=== PATIENT | female | born 1985 | race Two or more races ===

== ENCOUNTER 2020-03-30 18:39 | Emergency (ER) | payer OTHER ==
[2020-03-30] MEDS ORDERED: ACETAMINOPHEN 325 MG TABLET PO ONE ×2 (18:51→22:58)
[2020-03-30] MEDS ORDERED: DIPH/PERTUSS(ACELL)/TETANUS VAC/PF 0.5 ML SYR (>=10YO) IM ONE ×2 (18:51→23:30)
--- NOTE | 2020-03-30 18:56 | ER Document Report ---
ED Medical Screen (RME) - General Chief Complaint: Animal Bite Stated Complaint: DOG BITE - ARM INJURY Time Seen by Provider: 03/30/20 18:44 Primary Care Provider: EMILIO RM PA-C [Primary Care Provider] - Follow up as needed Mode of Arrival: Medic Information source: Patient Notes: HPI; 34-year-old female presents to the emergency room via EMS with a puncture wounds to her right third and fourth digits, right forearm. As well as a laceration to her right forearm. Bleeding is controlled. States she was attempting to get her dog from attacking a neighbor that had come over to visit. Patient states she just found 2 days ago that she is by doing home test. Patient was given 50 of fentanyl in route by EMS. PE: Alert and oriented x3. Moderate distress noted. There is a 2 cm laceration as well as a puncture wound noted to the the right forearm. There are puncture wounds to the right third and fourth finger which cannot be evaluated in triage secondary to blood. Did discuss with patient that we would need to do x-rays she is aware of the risk of having x-rays and radiation to the fetus while being patient is agreeable to have the x-rays. I have greeted and performed a rapid initial assessment of this patient. A comprehensive ED assessment and evaluation of the patient, analysis of test results and completion of the medical decision making process will be conducted by additional ED providers. I have specifically instructed the patient or family members with the patient to immediately return to any nursing staff should anything change in the patient's condition or with their chief complaint. TRAVEL OUTSIDE OF THE [place] IN LAST 30 DAYS: No - Related Data Allergies/Adverse Reactions: No Known Allergies Allergy (Unverified 03/23/20 17:40) Doctor's Discharge - Discharge Referrals: EMILIO RM PA-C [Primary Care Provider] - Follow up as needed
--- NOTE | 2020-03-30 20:20 | RADIOLOGY REPORT (SQ) ---
EXAM DESCRIPTION: Right forearm [facility]: XR FOREARM 2 VIEWS Views: 2 CLINICAL HISTORY: 34 years Female; dog bite; COMPARISON: None. FINDINGS: There is interval fixation hardware along the majority of the radial shaft and along the proximal ulnar shaft. No acute fracture. No lytic bone changes or acute periosteal reaction. Diffuse subcutaneous edema is noted. No soft tissue hyperdense foreign bodies. IMPRESSION: 1. Soft tissue edema. 2. No acute bone findings. 3. Previous internal fixation of the radius and ulna.
--- NOTE | 2020-03-30 20:26 | RADIOLOGY REPORT (SQ) ---
Right hand radiographs: 03/30/2020 7:25 PM CDT TECHNIQUE: AP, lateral, oblique images of the right hand were obtained. HISTORY: 34-year-old patient with history of right hand pain, trauma. COMPARISON: None available FINDINGS: The carpal arcs appear to be intact. The soft tissues are grossly unremarkable. There are no findings to suggest an acute fracture or subluxation within the right hand. No abnormal soft tissue calcifications, significant osteophyte formation, periarticular osteopenia, or bony erosions are seen. There is a compression plate with multiple screws seen at the distal right radius. IMPRESSION: There are no findings to suggest an acute fracture or subluxation within the right hand.
[2020-03-30] MEDS ORDERED: LIDOCAINE 2% INJ (20 MG/ML) 20 ML MDV INJ ONE (23:32)
[2020-03-31] MEDS ORDERED: KETOROLAC TROMETHAMINE INJ/PF 30 MG/1 ML SDV IV ONE (00:17)
[2020-03-31] MEDS ORDERED: PIPERACILLIN/TAZOBACTAM 3.375 GM VIAL IV ONE (00:59)
--- NOTE | 2020-03-31 01:34 | ER Document Report ---
ED Animal Bite - General Chief Complaint: Dog Bite Stated Complaint: DOG BITE - ARM INJURY Time Seen by Provider: 03/30/20 18:44 Primary Care Provider: EMILIO RM PA-C [Primary Care Provider] - Follow up as needed Mode of Arrival: Ambulatory Information source: Patient Notes: This 34-year-old woman presents to the emergency department with a history of dog bite injuries to the right forearm and hand. Apparently, a Pit bulldog belonged to her family friend was attacking her child, patient intervened and was attacked sustaining bites and puncture injuries to the right forearm third and fourth fingers of the right hand. Injuries occurred at about 1830 p.m. tetanus is out of date, she is not allergic to any medications. TRAVEL OUTSIDE OF THE [place] IN LAST 30 DAYS: No - Related Data Allergies/Adverse Reactions: No Known Allergies Allergy (Unverified 03/23/20 17:40) Past Medical History - General Information source: Patient - Social History Smoking Status: Unknown if Ever Smoked Family History: Reviewed & Not Pertinent Patient has homicidal ideation: No Review of Systems - Review of Systems Notes: Constitutional: Negative for fever. HENT: Negative for sore throat. Eyes: Negative for visual changes. Cardiovascular: Negative for chest pain. Respiratory: Negative for shortness of breath. Gastrointestinal: Negative for abdominal pain, vomiting or diarrhea. Genitourinary: Negative for dysuria. Musculoskeletal: Negative for back pain. Skin: + Laceration x2, + puncture wounds multiple scrapes Neurological: Negative for headaches, weakness or numbness. 10 point ROS negative except as marked above and in HPI. Physical Exam - Vital signs Vitals: Temp Pulse Resp BP Pulse Ox 98.6 F 107 H 15 139/90 H 97 03/30/20 19:30 03/30/20 19:30 03/30/20 19:30 03/30/20 19:30 03/30/20 19:30 - Notes Notes: PHYSICAL EXAMINATION: Physical Exam: General: Well-nourished well-developed 34-year-old female moderate distress secondary to notable punctures and lacerations. HEENT: NC/AT, pupils equal round and reactive to light, MM moist,nares clear, oropharynx clear, airway patent Neck: supple, no adenopathy, no masses. Good range of motion Lungs: clear, no wheezing, no rales no rhonchi CVS: Regular rate and rhythm no murmur gallop or rub Abdomen: Soft, active, nontender, no masses, no hepatosplenomegaly Ext: Right forearm with 4 cm open wound , 1 cm proximal wound, Right 4th finger with 1.5 cm open woun, Rt middle finger with puncture wound at distal phalanx. Neurovascular intact. Skin: Intact no open lesions, no rash PSYCH: Normal mood, normal affect. Course - Vital Signs Vital signs: Temp Pulse Resp BP Pulse Ox 98.6 F 107 H 15 139/90 H 97 03/30/20 19:30 03/30/20 19:30 03/30/20 19:30 03/30/20 19:30 03/30/20 19:30 Procedures - Laceration/Wound Repair Right Upper Arm Time completed: :25 Wound length (cm): 4 Wound's Depth, Shape: Irregular Laceration pre-procedure: Chloraprep applied Anesthetic type: 2% Lidocaine Volume Anesthetic (mLs): 5 Irrigated w/ Saline (mLs): 10 Wound Repaired With: Sutures Suture Size/Type: 5:0, Vicryl Number of Sutures: 4 - Interrupted sutures to approximate the tissue. Layer Closure?: No Post-procedure wound care: Sterile dressing applied, Sling applied Post-procedure NV exam normal: Yes Complications: No Right 3rd digit Time completed: : Wound length (cm): 1.5 Wound's Depth, Shape: Irregular, Flap Laceration pre-procedure: Chloraprep applied, Sterile drapes applied Anesthetic type: 2% Lidocaine Volume Anesthetic (mLs): 3 Wound explored: Clean Irrigated w/ Saline (mLs): 5 Wound Repaired With: Sutures Suture Size/Type: 5:0, Vicryl Number of Sutures: 1 - Suture was placed to approximate tissue at the fingertip. Layer Closure?: No Post-procedure wound care: Sterile dressing applied, Sling applied Discharge - Discharge Clinical Impression: Puncture wound of right middle finger Laceration of right forearm Qualifiers: Encounter type: initial encounter Qualified Code(s): S51.811A - Laceration without foreign body of right forearm, initial encounter Laceration of right ring finger Qualifiers: Encounter type: initial encounter Damage to nail status: without damage Foreign body presence: without foreign body Qualified Code(s): S61.214A - Laceration without foreign body of right ring finger without damage to nail, initial encounter Puncture wound of right forearm Qualifiers: Encounter type: initial encounter Qualified Code(s): S51.831A - Puncture wound without foreign body of right forearm, initial encounter Dog bite of arm Qualifiers: Encounter type: initial encounter Laterality: right Qualified Code(s): S41.151A - Open bite of right upper arm, initial encounter; W54.0XXA - Bitten by dog, initial encounter Dog bite of right hand Qualifiers: Encounter type: initial encounter Qualified Code(s): S61.451A - Open bite of right hand, initial encounter; W54.0XXA - Bitten by dog, initial encounter Condition: Good Disposition: HOME, SELF-CARE Instructions: Laceration Care (OM), Tetanus Immunization Given (OM), Animal Bites ([facility]) Additional Instructions: You were seen in the emergency department this evening with injuries associated with dog bites injury to your right forearm and right fingertip. Please keep the area of puncture wounds clean and use a sterile dressing. Please take the antibiotics as prescribed. You may use Tylenol or ibuprofen for pain. Low wear the sling for comfort. You may return to work when you are able to do your job without significant pain. HOME CARE INSTRUCTIONS & INFORMATION: Thank you for choosing us for your medical needs. We hope you're satisfied with the care you received. After you leave, you must properly care for your problem and, at the same time, observe its progress. Any condition can change. Some illnesses can change rapidly over hours or days. If your condition worsens, return to the Emergency Department or see your physician promptly. ABOUT YOUR X-RAYS AND EKG'S: If you had an EKG or X-rays taken, they have been read by the Emergency Physician. The X-rays and EKG's will also be read by a Radiologist or Planer Setter within 24 hours. If discrepancies are noted, you will be notified by telephone. Please be certain the ED has a correct telephone number & address where you can be reached. Also, realize that some fractures or abnormalities do not show up on initial X-rays. If your symptoms continue, see your physician. ABOUT YOUR LABORATORY TEST: If you had laboratory tests, the results have been reviewed by the Emergency Physician. Some test results (for example cultures) may not be available for several days. You will be contacted if any test result shows you need additional treatment. Please be certain the ED has a correct telephone number and address where you can be reached. ABOUT YOUR MEDICATIONS: You will receive instructions on how to take your medicine on the prescription label you receive. Additional information may be provided by the Pharmacy. If you have questions afterwards, call the ED for clarification or further instructions. Some prescribed medications may cause drowsiness. Do not perform tasks such as driving a car or operating machinery without consulting your Pharmacist. If you feel you need a refill of pain medication, your condition will need re-evaluation. Please do not call for a refill of any medication. ABOUT YOUR SIGNATURE: Signature of this document acknowledges to followin. Understanding that you received emergency treatment and that you may be released before al medical problems are known or treated. Please be certain the ED has a correct phone number & address where you can be reached. 2. Acknowledgement that you will arrange for follow-up care as recommended. 3. Authorization for the Emergency Physician to provide information to your follow-up Physician in order to maximize your care. AT ANY TIME, IF YOUR SYMPTOMS CHANGE SIGNIFICANTLY OR WORSEN OR YOU DEVELOP NEW SYMPTOMS, RETURN TO THE EMERGENCY DEPARTMENT IMMEDIATELY FOR RE-EVALUATION. OUR GOAL IS TO PROVIDE EXCELLENT MEDICAL CARE! WE HOPE THAT WE HAVE MET YOUR EXPECTATIONS DURING YOUR EMERGENCY DEPARTMENT VISIT AND THAT YOU FEEL YOU HAVE RECEIVED EXCELLENT CARE! Prescriptions: Amoxicillin/Potassium Clav [Augmentin 875-125 Tablet] 1 tab PO BID #20 tab Referrals: EMILIO RM PA-C [Primary Care Provider] - Follow up as needed
[2020-03-31] MEDS ORDERED: HYDROCODONE/ACETAMINOPHEN 5-325 MG (6 TAB/ER DISP) PO PRN (01:51)
[2020-03-31 02:09] VITALS: BP 130/80
== END 2020-03-31 02:10 | disposition home or self-care (01) ==
LOC: ER 18:39
PROC: 0HQFXZZ Repair Right Hand Skin, External Approach (ICD-10-PCS; principal; 2020-03-30)
PROC: 0HQDXZZ Repair Right Lower Arm Skin, External Approach (ICD-10-PCS; 2020-03-30)
DX: S51.811A Laceration without foreign body of right forearm, initial encounter (principal); S61.214A Laceration without foreign body of right ring finger without damage to nail, initial encounter; S51.831A Puncture wound without foreign body of right forearm, initial encounter; S41.151A Open bite of right upper arm, initial encounter; W54.0XXA Bitten by dog, initial encounter
CPT/HCPCS: 99284; 90471; 96375; 96365; 73090; 73130; 90715; 12002; J3490; J1885; J2543

== ENCOUNTER 2020-04-15 18:07 | Emergency (ER) | payer SELFPAY ==
[2020-04-15 18:34] VITALS: BP 148/110
[2020-04-15 19:32] LABS: ABSOLUTE BASOPHILS # (AUTO) 0.1 10^3/uL (0.0-0.2); ABSOLUTE EOSINOPHILS # (AUTO) 0.2 10^3/uL (0.0-0.6); ABSOLUTE LYMPHOCYTES (AUTO) 2.4 10^3/uL (0.5-4.7); ABSOLUTE MONOCYTES (AUTO) 0.6 10^3/uL (0.1-1.4); BASOPHILS % (AUTO) 1.3 % (0-2); EOSINOPHILS % (AUTO) 2.2 % (0-6); HEMATOCRIT 38.6 % (36.0-47.0); HEMOGLOBIN 13.2 g/dL (12.0-15.5); LYMPHOCYTES % (AUTO) 32.9 % (13-45); MEAN CORPUSCULAR HEMOGLOBIN 30.2 pg (27.0-33.4); MEAN CORPUSCULAR HGB CONC 34.2 g/dL (32.0-36.0); MEAN CORPUSCULAR VOLUME 88 fl (80-97); MONOCYTES % (AUTO) 7.9 % (3-13); PLATELET COUNT 324 10^3/uL (150-450); RED BLOOD COUNT 4.37 10^6/uL (3.72-5.28); RED CELL DISTRIBUTION WIDTH 13.9 % (11.5-14.0); SEGMENTED NEUTROPHILS % (AUTO) 55.7 % (42-78); TOTAL CELLS COUNTED % (AUTO) 100 %; WHITE BLOOD COUNT 7.2 10^3/uL (4.0-10.5)
--- NOTE | 2020-04-15 19:34 | ER Document Report ---
ED Medical Screen (RME) - General Chief Complaint: Chest Pain Stated Complaint: CHEST PAIN, HANDS TINGLING Time Seen by Provider: 04/15/20 19:15 Primary Care Provider: EMILIO RM PA-C [Primary Care Provider] - Follow up as needed TRAVEL OUTSIDE OF THE [place] IN LAST 30 DAYS: No - HPI Notes: 04/15/20 19:33 34-year-old female to the emergency department with complaints of off-and-on chest pain and bilateral hand tingling today. She states that "she just does not feel like herself". She states that this does feel a little bit like her anxiety. She states that she takes Lexapro and she took it today but she does not feel any better. Denies any shortness of breath, nausea, vomiting, diarrhea. She denies any nanci stressors though she is not exactly sure what setting her off. Denies SI, HI, hallucinations. I performed a brief medical screening exam on the patient determined that the patient needs further evaluation and management by main side provider. I have placed initial orders to help expedite care. - Related Data Allergies/Adverse Reactions: No Known Allergies Allergy (Unverified 03/23/20 17:40) Home Medications: lexapro Physical Exam - Vital signs Vitals: Temp Pulse Resp BP Pulse Ox 98.2 F 95 16 148/110 H 98 04/15/20 18:33 04/15/20 18:33 04/15/20 18:33 04/15/20 18:33 04/15/20 18:33 Course - Vital Signs Vital signs: Temp Pulse Resp BP Pulse Ox 98.2 F 95 16 148/110 H 98 04/15/20 18:33 04/15/20 18:33 04/15/20 18:33 04/15/20 18:33 04/15/20 18:33 - Laboratory Result Diagrams: 04/15/20 18:48 04/15/20 18:48 Doctor's Discharge - Discharge Referrals: EMILIO RM PA-C [Primary Care Provider] - Follow up as needed
[2020-04-15 19:37] LABS: APPEARANCE,URINE SLIGHTLY-CLOUDY; BILIRUBIN,URINE NEGATIVE (NEGATIVE); COLOR,URINE YELLOW; GLUCOSE, URINE NEGATIVE (NEGATIVE); KETONES,URINE NEGATIVE (NEGATIVE); LEUKOCYTE ESTERASE,URINE TRACE (NEGATIVE); NITRITE,URINE NEGATIVE (NEGATIVE); PROTEIN,URINE 100 mg/dL (NEGATIVE); URINE SPECIFIC GRAVITY 1.019; UROBILINOGEN,URINE NEGATIVE mg/dL (<2.0)
[2020-04-15 19:40] LABS: ALBUMIN 4.1 g/dL (3.5-5.0); ALKALINE PHOSPHATASE 59 U/L (38-126); ANION GAP 7 (5-19); ASPARTATE AMINO TRANSFERASE 57 U/L (14-36); BILIRUBIN,DIRECT 0.3 mg/dL (0.0-0.4); BILIRUBIN,TOTAL 0.5 mg/dL (0.2-1.3); BLOOD UREA NITROGEN 7 mg/dL (7-20); CALCIUM 9.5 mg/dL (8.4-10.2); CARBON DIOXIDE 24 mmol/L (22-30); CHLORIDE 103 mmol/L (98-107); GLUCOSE 104 mg/dL (75-110); POTASSIUM 4.4 mmol/L (3.6-5.0); TOTAL PROTEIN 6.6 g/dL (6.3-8.2)
[2020-04-15 19:55] LABS: URINE AMPHETAMINES SCREEN NEGATIVE; URINE BARBITURATES SCREEN NEGATIVE; URINE BENZODIAZEPINES SCREEN NEGATIVE; URINE COCAINE SCREEN NEGATIVE; URINE METHADONE SCREEN NEGATIVE; URINE PHENCYCLIDINE SCREEN NEGATIVE
[2020-04-15 19:56] LABS: URINE MARIJUANA (THC) SCREEN UNCONFIRMED POSITIVE
--- NOTE | 2020-04-15 20:17 | RADIOLOGY REPORT (SQ) ---
EXAM DESCRIPTION: XR CHEST 1 VIEW COMPLETED DATE/TME: 04/15/2020 19:20 CLINICAL HISTORY: 34 years, Female, chest pain COMPARISON: EXAM DESCRIPTION: CLINICAL HISTORY: 34 years Female chest pain COMPARISON: None. FINDINGS: The cardiomediastinal silhouette appears unremarkable. No consolidating infiltrates or pleural effusions. No pneumothorax. IMPRESSION: No acute abnormality is identified. NUMBER OF VIEWS: TECHNIQUE: LIMITATIONS: None. FINDINGS: IMPRESSION: copyright 2010 [employer]- All Rights Reserved
--- NOTE | 2020-04-15 20:56 | ER Document Report ---
ED General - General Chief Complaint: Chest Pain Stated Complaint: CHEST PAIN, HANDS TINGLING Time Seen by Provider: 04/15/20 19:15 Primary Care Provider: EMILIO RM PA-C [Primary Care Provider] - Follow up as needed TRAVEL OUTSIDE OF THE [place] IN LAST 30 DAYS: No - HPI Notes: 34-year-old female presents with chest pain. Patient states that she had a bad day in terms of her anxiety. She states around 11 AM she developed onset of anxiety, she had chest tightness, located in the upper part of her chest, no radiation, did not change with exertion. She states it was intermittent throughout the day. Patient reports that she was also crying and her hands were tingling, which commonly occurs when she is feeling anxious. She denies shortness of breath. She states that her chest pain has now resolved. She denies suicidal or homicidal ideations. She reports a history of anxiety, she takes Lexapro, she states she has resources to follow-up. Additionally patient recently had medical last Thursday, 6 days ago. She states she was about 6 weeks , she went to an clinic and had an ultrasound done prior to pills, believes she took mifepristone. She denies abdominal pain or cramping. She states that she currently is having bleeding which is the same amount as a her menstrual cycle typically. She states that she has follow-up for a repeat ultrasound 14 days post . - Related Data Allergies/Adverse Reactions: No Known Allergies Allergy (Unverified 03/23/20 17:40) Home Medications: lexapro Past Medical History - General Information source: Patient - Social History Smoking Status: Current Every Day Smoker Family History: Reviewed & Not Pertinent Review of Systems - Review of Systems Constitutional: denies: Fever EENT: No symptoms reported Cardiovascular: Chest pain Respiratory: denies: Short of breath Gastrointestinal: denies: Abdominal pain Genitourinary: denies: Dysuria Female Genitourinary: Vaginal bleeding. denies: Vaginal discharge, Vaginal odor Musculoskeletal: No symptoms reported Skin: No symptoms reported Hematologic/Lymphatic: No symptoms reported Neurological/Psychological: Anxiety Physical Exam - Vital signs Vitals: Temp Pulse Resp BP Pulse Ox 98.2 F 95 16 148/110 H 98 04/15/20 18:33 04/15/20 18:33 04/15/20 18:33 04/15/20 18:33 04/15/20 18:33 - General General appearance: Appears well, Alert In distress: None - HEENT Head: Normocephalic, Atraumatic Extraocular movements intact: Yes Pupils: PERRL - Respiratory Chest status: Nontender Breath sounds: Normal - Cardiovascular Rhythm: Regular Heart sounds: Normal auscultation - Abdominal Inspection: Obese Bowel sounds: Normal Tenderness: Nontender - Extremities General lower extremity: No: Edema - Neurological Neuro grossly intact: Yes Cognition: Normal Orientation: AAOx4 - Psychological Associated symptoms: Normal affect. No: Psychomotor agitation, Tearful - Skin Skin Temperature: Warm Course - Re-evaluation Re-evalutation: 04/15/20 21:19 34-year-old female presents with nonexertional intermittent chest pain starting at 11 AM, is now resolved. Seems to be associated with anxiety. I do not have a high suspicion for cardiac etiology at this time based on her description, she has no known cardiac disease. Her EKG is nonischemic. Troponin is pending. In terms of her anxiety, she does not voice any SI or HI. Of note her test is positive, she underwent medical 6 days ago, I have added on a hCG hormone level. She does not voice any pain complaints and her abdomen is nontender. 04/15/20 22:13 Patient requesting to leave emergency department. I went in to update her on results. Troponin is negative which is well beyond 3 hours since initial onset. hCG is 255. I discussed with her suspect that this reflects the medical . I discussed with her strict return precautions for any abdominal pain, discharge or fever, she verbalized understanding. She states she will have follow-up for the 14-day ultrasound as well. Return precautions were given, states she was stable at time of discharge. - Vital Signs Vital signs: Temp Pulse Resp BP Pulse Ox 98.2 F 95 22 H 148/110 H 98 04/15/20 18:33 04/15/20 18:33 04/15/20 19:44 04/15/20 18:33 04/15/20 18:33 - Laboratory Result Diagrams: 04/15/20 18:48 04/15/20 18:48 Laboratory results interpreted by me: 04/15/20 04/15/20 04/15/20 18:48 18:48 18:48 Sodium 134.0 L AST 57 H ALT 57 H Beta HCG, Quant 255.17 H Urine Protein 100 H Urine Blood LARGE H Ur Leukocyte Esterase TRACE H Urine HCG, Qual POSITIVE H - Diagnostic Test Radiology reviewed: Image reviewed, Reports reviewed - EKG Interpretation by Me Additional EKG results interpreted by me: 04/15/20 21:25 EKG interpreted by me. Normal sinus rhythm, rate 95. Narrow QRS, QTC within normal limits. No ST segment elevation. Discharge - Discharge Clinical Impression: Anxiety Condition: Stable Disposition: HOME, SELF-CARE Additional Instructions: Please follow-up with the ultrasound as planned peer return to the emergency department for abdominal pain/cramping, abnormal vaginal discharge, fever or any other concerning symptoms. Please have close follow-up for anxiety as well. Forms: Return to Work Referrals: EMILIO RM PA-C [Primary Care Provider] - Follow up as needed
--- NOTE | 2020-04-15 22:00 | EKG REPORT ---
SEVERITY:- BORDERLINE ECG - SINUS RHYTHM PROBABLE LEFT ATRIAL ABNORMALITY : Confirmed by: James Lea MD 15-Apr-2020 21:59:52
== END 2020-04-15 22:22 | disposition home or self-care (01) ==
LOC: ER 18:07
DX: F41.9 Anxiety disorder, unspecified (principal); R07.9 Chest pain, unspecified; R20.0 Anesthesia of skin
CPT/HCPCS: 36415; 71045; 80053; 80307; 81001; 81025; 84484; 84702; 85025; 93005; 93010; 99285

== ENCOUNTER 2020-04-21 11:27 | Emergency (ER) | payer SELFPAY ==
[2020-04-21 11:31] VITALS: BP 158/93
--- NOTE | 2020-04-21 11:42 | ER Document Report ---
ED Medical Screen (RME) - General Stated Complaint: VAGINAL BLEEDING Time Seen by Provider: 04/21/20 11:34 Primary Care Provider: EMILIO RM PA-C [Primary Care Provider] - Follow up as needed Notes: Patient states that she took an pill on 04/05/2020 and then followed up and took additional pills on 04/06/2020. Patient was supposed to follow-up with the clinic who prescribed her the pills yesterday although did not make her appointment because is a 3-[address]. Patient states she has had persistent cramping and vaginal bleeding. Patient wants to check to be certain that everything has resolved. She denies any fever. I have greeted and performed a rapid initial assessment of this patient. A comprehensive ED assessment and evaluation of the patient, analysis of test results and completion of the medical decision making process will be conducted by additional ED providers. TRAVEL OUTSIDE OF THE [place] IN LAST 30 DAYS: No - Related Data Allergies/Adverse Reactions: No Known Allergies Allergy (Verified 04/21/20 11:33) Physical Exam - Vital signs Vitals: Temp Pulse Resp BP Pulse Ox 98.4 F 93 20 158/93 H 99 04/21/20 11:30 04/21/20 11:30 04/21/20 11:30 04/21/20 11:30 04/21/20 11:30 - General General appearance: Appears well, Alert In distress: None Course - Vital Signs Vital signs: Temp Pulse Resp BP Pulse Ox 98.4 F 93 20 158/93 H 99 04/21/20 11:30 04/21/20 11:30 04/21/20 11:30 04/21/20 11:30 04/21/20 11:30 Doctor's Discharge - Discharge Referrals: EMILIO RM PA-C [Primary Care Provider] - Follow up as needed
[2020-04-21 12:23] LABS: ABSOLUTE BASOPHILS # (AUTO) 0.1 10^3/uL (0.0-0.2); ABSOLUTE EOSINOPHILS # (AUTO) 0.3 10^3/uL (0.0-0.6); ABSOLUTE LYMPHOCYTES (AUTO) 2.6 10^3/uL (0.5-4.7); ABSOLUTE MONOCYTES (AUTO) 0.5 10^3/uL (0.1-1.4); BASOPHILS % (AUTO) 1.2 % (0-2); EOSINOPHILS % (AUTO) 3.4 % (0-6); HEMATOCRIT 39.1 % (36.0-47.0); HEMOGLOBIN 13.2 g/dL (12.0-15.5); LYMPHOCYTES % (AUTO) 34.9 % (13-45); MEAN CORPUSCULAR HEMOGLOBIN 29.9 pg (27.0-33.4); MEAN CORPUSCULAR HGB CONC 33.8 g/dL (32.0-36.0); MEAN CORPUSCULAR VOLUME 89 fl (80-97); MONOCYTES % (AUTO) 7.1 % (3-13); PLATELET COUNT 297 10^3/uL (150-450); RED BLOOD COUNT 4.42 10^6/uL (3.72-5.28); RED CELL DISTRIBUTION WIDTH 14.4 % (11.5-14.0); SEGMENTED NEUTROPHILS % (AUTO) 53.4 % (42-78); TOTAL CELLS COUNTED % (AUTO) 100 %; WHITE BLOOD COUNT 7.5 10^3/uL (4.0-10.5)
[2020-04-21 12:35] LABS: APPEARANCE,URINE SLIGHTLY-CLOUDY; BILIRUBIN,URINE NEGATIVE (NEGATIVE); COLOR,URINE YELLOW; GLUCOSE, URINE NEGATIVE (NEGATIVE); KETONES,URINE NEGATIVE (NEGATIVE); LEUKOCYTE ESTERASE,URINE NEGATIVE (NEGATIVE); NITRITE,URINE NEGATIVE (NEGATIVE); PROTEIN,URINE NEGATIVE (NEGATIVE); URINE SPECIFIC GRAVITY 1.015; UROBILINOGEN,URINE NEGATIVE mg/dL (<2.0)
--- NOTE | 2020-04-21 12:47 | ER Document Report ---
ED GI/ - General Chief Complaint: Vaginal Bleeding Stated Complaint: VAGINAL BLEEDING Time Seen by Provider: 04/21/20 11:34 Primary Care Provider: EMILIO RM PA-C [Primary Care Provider] - Follow up as needed Notes: Patient is a 34-year-old female who presents to the emergency department with a chief complaint of vaginal bleeding. Patient states that she had a medical 12 days ago. Patient states that she continues to have cramping and bleeding. She says the pain is not that bad, but she just wants to make sure that she is not anymore. TRAVEL OUTSIDE OF THE [place] IN LAST 30 DAYS: No - Related Data Allergies/Adverse Reactions: No Known Allergies Allergy (Verified 04/21/20 12:05) Past Medical History - Social History Smoking Status: Current Every Day Smoker Family History: Reviewed & Not Pertinent Patient has homicidal ideation: No Psychiatric Medical History: Reports: Hx Depression Review of Systems - Review of Systems Notes: REVIEW OF SYSTEMS: CONSTITUTIONAL : Denies recent illness. Denies recent unintentional weight loss. Denies fever, chills, or sweats. EENT: Denies eye, ear, throat, or mouth pain, discharge, or symptoms. Denies nasal or sinus congestion. CARDIOVASCULAR: Denies chest pain. RESPIRATORY: Denies shortness of breath, cough, congestion, difficulty breathing, or wheezing. GASTROINTESTINAL: Denies nausea, vomiting, and diarrhea. Denies constipation. See HPI. GENITOURINARY: Denies difficulty urinating, burning, blood in urine, urgency or frequency. FEMALE GENITOURINARY: See HPI. MUSCULOSKELETAL: Denies neck and back pain. Denies joint pain or swelling. SKIN: Denies rash, itchiness, or lesions HEMATOLOGIC : Denies easy bruising or bleeding. LYMPHATIC: Denies swollen, painful, enlarged glands. NEUROLOGICAL: Denies no numbness or tingling denies weakness. Denies headache. Denies altered mental status. Denies alteration in speech. PSYCHIATRIC: Denies stress, anxiety, alteration in sleep patterns, or depression. All other systems reviewed and negative. Physical Exam - Vital signs Vitals: Temp Pulse Resp BP Pulse Ox 98.4 F 93 20 158/93 H 99 04/21/20 11:30 04/21/20 11:30 04/21/20 11:30 04/21/20 11:30 04/21/20 11:30 - Notes Notes: PHYSICAL EXAMINATION: GENERAL: Appears well, healthy, well-nourished, no acute distress. HEAD: Normocephalic, atraumatic. EYES: PERRL, conjunctiva normal, all extraocular movements intact, sclera nonicteric ENT: Moist mucous membranes. NECK: Supple, no noticeable swelling, redness, rash. Normal range of motion. LUNGS: Equal breath sounds bilaterally and clear to auscultation. No wheezes rales or rhonchi. CARDIOVASCULAR: S1-S2, regular rate, regular rhythm. Radial pulses 2+, normal. ABDOMEN: Normoactive bowel sounds. Soft, nontender, no guarding, no rebound tenderness, and no masses palpated. EXTREMITIES: Normal strength and range of motion, no pitting or edema. No cyanosis. NEUROLOGICAL: Moves all extremities upon command. Strength 5/5 in all extremities. PSYCH: Normal mood, normal affect. SKIN: Warm, dry. No rash, lesions, ulcerations noted. Normal skin turgor. Course - Re-evaluation Re-evalutation: 04/21/20 13:06 Hematology is unremarkable. No anemia noted. hCG is 49 which is lower than her 6 days ago when it was 255. Patient did successfully have an . Low suspicion for appendicitis, tubo-ovarian abscess, or any life-threatening etiology at this time. Advised patient take Tylenol as needed for pain. Follow-up precautions were given. Verbal discharge instructions were given to the patient. They verbalized understanding. They are stable for discharge. - Vital Signs Vital signs: Temp Pulse Resp BP Pulse Ox 98.4 F 93 20 158/93 H 99 04/21/20 11:30 04/21/20 11:30 04/21/20 11:30 04/21/20 11:30 04/21/20 11:30 - Laboratory Result Diagrams: 04/21/20 11:50 Laboratory results interpreted by me: 04/21/20 04/21/20 04/21/20 11:50 11:50 11:50 RDW 14.4 H Beta HCG, Quant 49.88 H Urine Blood LARGE H Discharge - Discharge Clinical Impression: Vaginal bleeding Condition: Stable Disposition: HOME, SELF-CARE Additional Instructions: You were seen today in the emergency department for vaginal bleeding. Your labs show that you had a successful . Follow-up with your [facility] as needed. Use warm packs or Tylenol as needed for pain. Referrals: EMILIO RM PA-C [Primary Care Provider] - Follow up as needed
== END 2020-04-21 13:16 | disposition home or self-care (01) ==
LOC: ER 11:27
DX: N93.9 Abnormal uterine and vaginal bleeding, unspecified (principal); F17.200 Nicotine dependence, unspecified, uncomplicated; Z87.59 Personal history of other complications of pregnancy, childbirth and the puerperium
CPT/HCPCS: 36415; 81001; 84702; 85025; 99282

== ENCOUNTER 2020-05-04 16:36 | Emergency (ER) | payer OTHER ==
[2020-05-04 17:28] VITALS: BP 149/101
[2020-05-04] MEDS ORDERED: ESCITALOPRAM OXALATE 10 MG TABLET PO ONE (17:55)
--- NOTE | 2020-05-04 18:03 | ER Document Report ---
HPI - HPI Time Seen by Provider: 05/04/20 17:49 Notes: 34-year-old female patient presents the emergency department requesting a refill on her depression medications. She states that due to loss of insurance she has been unable to get into see her primary care provider who usually prescribes these. She states she has been out of her Lexapro for the last 4 days and is starting to feel depression and anxiety. She denies any thoughts of self-harm or harm of others. - ROS Systems Reviewed and Negative: Yes All other systems reviewed and negative - REPRODUCTIVE Reproductive: DENIES: : Past Medical History - General Information source: Patient - Social History Smoking Status: Never Smoker Family History: Reviewed & Not Pertinent Psychiatric Medical History: Reports: Hx Depression Vertical Provider Document - CONSTITUTIONAL Notes: PHYSICAL EXAMINATION: GENERAL: Well-appearing, well-nourished and in no acute distress. HEAD: Atraumatic, normocephalic. EYES: Pupils equal round extraocular movements intact, conjunctiva are normal. ENT: Nares patent NECK: Normal range of motion LUNGS: No respiratory distress Musculoskeletal: Normal range of motion NEUROLOGICAL: Normal speech, normal gait. PSYCH: Normal mood, normal affect. SKIN: Warm, Dry, normal turgor, no rashes or lesions noted. - INFECTION CONTROL TRAVEL OUTSIDE OF THE [place] IN LAST 30 DAYS: No Course - Re-evaluation Re-evalutation: Patient appears well, nontoxic. She has no thoughts of SI or HI. She is requesting a refill on her medication. She has good insight and judgment. Her medication will be refilled at this time. No further work-up indicated. - Vital Signs Vital signs: Temp Pulse Resp BP Pulse Ox 97.9 F 82 20 149/101 H 97 05/04/20 17:26 05/04/20 17:26 05/04/20 17:26 05/04/20 17:26 05/04/20 17:26 Discharge - Discharge Clinical Impression: Medication refill Condition: Stable Disposition: HOME, SELF-CARE Additional Instructions: Please have medications filled. Follow-up with the [facility]. Prescriptions: Escitalopram Oxalate [Lexapro 10 mg Tablet] 20 mg PO DAILY 30 Days #60 tablet Forms: Return to Work Referrals: [facility] [Provider Group] - Follow up as needed
== END 2020-05-04 18:31 | disposition home or self-care (01) ==
LOC: ER 16:36
DX: Z76.0 Encounter for issue of repeat prescription (principal); F32.9 Major depressive disorder, single episode, unspecified
CPT/HCPCS: 99283

== ENCOUNTER 2020-07-07 04:32 | Emergency (ER) | payer SELFPAY ==
[2020-07-07] MEDS ORDERED: OXYCODONE-ACETAMINOPHEN 5-325 MG TABLET PO ONE (05:34)
[2020-07-07] MEDS ORDERED: PENICILLIN V POTASSIUM 500 MG TABLET PO ONE (05:34)
[2020-07-07] MEDS ORDERED: HYDROCODONE/ACETAMINOPHEN 5-325 MG (6 TAB/ER DISP) PO PRN (05:34)
--- NOTE | 2020-07-07 05:42 | ER Document Report ---
HPI - HPI Time Seen by Provider: 07/07/20 05:26 Pain Level: 5 Context: Patient is a 35-year-old female who comes emergency department for chief complaint of dental pain. She states she has a known broken left upper molar, she states she has been dealing with pain from this intermittently for the past several months, she states that over the past couple of days the area has become much more tender and tonight became unbearable. She denies swelling of the face, sore throat, neck pain, fever, or any other complaints. She states she does not have a dentist. Significant other at bedside. - REPRODUCTIVE Reproductive: DENIES: : Past Medical History - General Information source: Patient - Social History Smoking Status: Current Every Day Smoker Frequency of alcohol use: None Drug Abuse: None Lives with: Family Family History: Reviewed & Not Pertinent Psychiatric Medical History: Reports: Hx Depression - Immunizations Hx Diphtheria, Pertussis, Tetanus Vaccination: Yes Vertical Provider Document - CONSTITUTIONAL General Appearance: WD/WN, Mild Distress - Patient tearful, holding a heat pack to the left side of her face - INFECTION CONTROL TRAVEL OUTSIDE OF THE [place] IN LAST 30 DAYS: No - HEENT HEENT: Atraumatic, Normocephalic, PERRLA. negative: Conjuctival Injection, Pharyngeal Exudate, Pharyngeal Tenderness, Pharyngeal Erythema, Tympanic Membrane Red, Tympanic Membrane Bulging Mouth Diagram: 1 - Broken tooth with surrounding erythema of the gumline with tenderness on palpation but there is no induration, fluctuance, abscess noted. Unremarkable otherwise - NECK Neck: Normal Inspection - No submandibular swelling. negative: Lymphadenopathy- Left, Lymphadenopathy-Right - RESPIRATORY Respiratory: Breath Sounds Normal, No Respiratory Distress - CARDIOVASCULAR Cardiovascular: Regular Rate, Regular Rhythm - GI/ABDOMEN Gastrointestinal: Abdomen Soft, Abdomen Non-Tender. negative: Abdomen Tender - BACK Back: Normal Inspection - MUSCULOSKELETAL/EXTREMETIES Musculoskeletal/Extremeties: MAEW, FROM, Non-Tender - NEURO Level of Consciousness: Awake, Alert, Appropriate Motor/Sensory: No Motor Deficit, No Sensory Deficit - DERM Integumentary: Warm, Dry, No Rash Course - Re-evaluation Re-evalutation: Exam consistent with dental infection without secondary abscess or concerning findings otherwise. Started on antibiotics, referred to dentist, discussed follow-up and return precautions. Patient states understanding and agreement. - Vital Signs Vital signs: Temp Pulse Resp BP Pulse Ox 98.1 F 102 H 20 188/118 H 98 07/07/20 04:36 07/07/20 04:36 07/07/20 04:36 07/07/20 04:36 07/07/20 04:36 Discharge - Discharge Clinical Impression: Pain, dental, Dental infection Condition: Stable Disposition: HOME, SELF-CARE Additional Instructions: Your evaluation shows a dental infection. Take the antibiotics as prescribed to completion. It is important to follow-up with the dentist where this will continue to happen. Come back if you worsen including swelling of the face, spiking fevers, or any other concerning symptoms. [facility] [address], [address] Prescriptions: Penicillin V Potassium [Penicillin Vk 500 mg Tablet] 500 mg PO BID #20 tablet Forms: Return to Work, Elevated Blood Pressure
[2020-07-07 05:58] VITALS: BP 164/102
== END 2020-07-07 05:55 | disposition home or self-care (01) ==
LOC: ER 04:32
DX: K04.7 Periapical abscess without sinus (principal); F17.200 Nicotine dependence, unspecified, uncomplicated
CPT/HCPCS: 99284